=== PATIENT | male | born 1995 | race Caucasian/White ===

== ENCOUNTER → 2017-08-13 | Outpatient (CLI) | payer SELFPAY ==
[~2017-08-13] MED LIST: MORPHINE SULFATE 4 MG/ML INJ IV PUSH ONE
== END ==
LOC: HEDF 20:30
DX: S72.302A Unspecified fracture of shaft of left femur, initial encounter for closed fracture (principal); V43.92XA Unspecified car occupant injured in collision with other type car in traffic accident, initial encounter
CPT/HCPCS: A0431; A0436; J2270